=== PATIENT | female | born 1950 | race Caucasian/White ===

== ENCOUNTER 2025-04-17 09:53 | Outpatient (AMB) | payer MEDICARE, SELFPAY ==
--- NOTE | 2025-04-17 10:14 | A.OFFVIS_ITS ---
Intake Visit Reasons: ENP-Cognitive Impairment Allergies pseudoephedrine Allergy (Unknown, Verified 04/16/25 09:27) Unknown Quinolones Allergy (Unknown, Verified 04/16/25 09:27) Unknown Sulfa (Sulfonamide Antibiotics) Allergy (Unknown, Verified 04/16/25 09:27) Unknown Medication List - Last Reconciled 04/17/25 by Eduardo Jerez MD atenolol 25 mg PO DAILY cyanocobalamin (vitamin B-12) 1,000 mcg PO DAILY cbdwdbqtobq-kgqwydilr-plfnmqts 200-62.5-25 mcg (Trelegy Ellipta) 1 ea inhalation DAILY hydroxyzine pamoate 25 mg PO DAILY PRN lamotrigine 150 mg PO BID levothyroxine 50 mcg PO DAILY simvastatin 40 mg PO BEDTIME trazodone 50 mg PO BEDTIME PRN venlafaxine ER 225 mg PO BEDTIME HPI Comments Details: This is a 75-year-old right-handed woman with a history of hypertension, hypoth yroidism, depression, GERD, and high blood pressure who comes in with a 1-2 year history of short-term memory problems. 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 A CAT scan was done about 6 months earlier and was apparently normal. Official reading is not available at this time. List of her medications is on the chart. She reports that her mother had dementia and was treated with Aricept. [facility] Medical History (Updated 04/17/25 @ 10:33 by Eduardo Jerez MD) Anemia Vitamin B12 deficiency Vitamin D deficiency GERD (gastroesophageal reflux disease) COPD (chronic obstructive pulmonary disease) Cognitive impairment Hypothyroidism HLD (hyperlipidemia) Hypertension Surgical History (Updated 04/16/25 @ 09:29 by Slim Matute CMA) H/O lumpectomy Hx of appendectomy Review of Systems Neuro Reports memory loss Psych Reports depression and Reports memory loss Physical Exam Neuro Other: ?Mini Mental Status Exam Level of Consciousness:?Alert.? Orientation:?Knows correct year, month, date, day and season.?Knows correct city, county and state. Knows correct location and floor.? Registration:?Able to register 3 objects.? Attention:?Serial 7's performed accuratelyto 93 Recall:?Able to recall 2 out of 3 objects.? Language:?Normal spontaneous speech, fluency, repetition, naming, comprehension, reading, and writing.? Total Score:?28/30.? Neurological Abnormal neurological findings:??MMS 28/30.? Mental Status:?Alert and oriented X 3.?Normal attention, orientation, and affect.? Cranial Nerves:?Pupils are equal, round and reactive to light. Fundoscopy shows normal disc bilaterally. External occular muscles are intact. Visual phan are full, no ptosis. Face is symmetrical, no facial weakness or droop. Facial sensations are normal. Tongue protrudes in midline. Palate elevates symmetrically. Shoulder shrugging is normal.? Motor Examination:?Normal muscle tone, bulk and strength.?No atrophy or fasciculations.?No drift of the extended upper extremities.?Deep tendon reflexes are 2+.?Plantars are flexor.? Motor Strength:? Proximal Muscles (out of 5):?5 Distal Muscles (out of 5):?5 Neck Flexors (out of 5):?5 Neck Extensors (out of 5):?5 Deltoid (out of 5):?5 Biceps (out of 5):?5 Triceps (out of 5):?5 Serratus Anterior (out of 5):?5 Wrist Extensors (out of 5):?5 APB (out of 5):?5 Finger Spread (out of 5):?5 Ileopsoas (out of 5):?5 Quadriceps (out of 5):?5 Hamstrings (out of 5):?5 Tibialis Anterior (out of 5):?5 Peronei (out of 5):?5 EDB (out of 5):?5 Gastrocnemius (out of 5):?5 Straight Leg Raising:?90 degrees.? Sensory Exam:?Normal light touch, temperature, pinprick, vibration and joint-position sensations.?Rhomberg sign is absent.? Coordination:?No ataxia,?no titubation,?ndgiia-ln-ovqi, wuif-aldg-qito test, and rapid alternating movements were normal.? Gait Exam:?Within normal limits.? Cerebellar Signs:?Ndzxch-bt-mnrw and jnhz-lm-sdjq is normal.?No dysdiadochokinesia.? Extrapyramidal System:?No tremor or?rigidity, normal facial expressions.?No bradykinesia. No bradyphrenia. Normal arm swing and posture. No propulsion or retropulsion.? Speech:?Normal,?no dysphasia or dysarthria.? General Examination GENERAL APPEARANCE:??normal,?in no acute distress?,?normal,?in no acute distress.? HEAD:??normocephalic,?atraumatic.? EYES:??sclera non-icteric,?conjunctiva clear.? EARS:??auditory canal clear,?tympanic membrane intact, clear.? NOSE:??no lesions.? ORAL CAVITY:??gums normal,?mucosa moist,?no lesions.? THROAT:??clear.? NECK/THYROID:??no cervical lymphadenopathy,?thyroid normal,?neck supple, full range of motion,?no carotid bruit.? SKIN:??no rashes,?no significant birthmarks.? HEART:??S1, S2 normal,?no murmurs?,?S1, S2 normal,?no murmurs.? LUNGS:??clear anteriorly and posteriorly?,?clear anteriorly and posteriorly.? CHEST:??no gross rib deformity,?clear to auscultation.? BACK:??normal exam of spine.? MUSCULOSKELETAL:??normal.? EXTREMITIES:??no edema?,?no edema.? PERIPHERAL PULSES:??normal.? PSYCH:??alert, oriented,?cognitive function intact,?cooperative with exam?,?alert, oriented,?cognitive function intact,?cooperative with exam.? Assessment & Plan Assessment & Plan (1) MCI (mild cognitive impairment): Code(s): G31.84 - Mild cognitive impairment of uncertain or unknown etiology Category: Medical Plan Will arrange a more detailed mental state examination with [facility] and [place]. Routine EEG. Labs for treatable causes of cognitive impairment. All start donepezil 5 mg a day to be titrated to 10 mg a day for symptomatic improvement. Coding Level of Care Code New Pt Level 5 (56809) Diagnoses MCI (mild cognitive impairment) G31.84
--- OUTSIDE RECORDS SUMMARY | 2025-04-17 10:47 | XMS_ITS ---
Author Name [facility] Organization Unknown Care Team Organization Name Specialty Phone Email Start Date End Da te [facility] ACO 03/07/2025 [facility] Isaura Zavala MD Primary Care 09/23/2022 03/06/2024 [facility] Ramya Evans Primary Care 05/26/2022 03/06/20 24
--- OUTSIDE RECORDS SUMMARY | 2025-04-17 10:48 | XMS_ITS | Clinical Summary ---
Author Organization [facility] Address [address] [place] [address] Care Team Providers Care Eating Disorder Specialist Name Role Phone Isaura Zavala MD Primary Care Provider Allergies Active Allergy Reactions Criticality Noted Date Comments Quinolones Nausea And Vomiting Medium 02/28/2018 Pseudoephedrine Palpitations Medium 02/28/2018 Sulfa Antibiotics Nausea And Vomiting Medium 8 Medications Medication Sig Dispensed Refills Start Date End Date Status atenolol (TENORMIN) tablet 25 mg Take 1 tablet (25 mg total) by mouth daily. 0 Active lamoTRIgine (LAMICTAL) 100 MG tablet Take 1 tablet (100 mg total) by mouth daily. 0 Active levothyroxine (SYNTHROID, LEVOXYL) tablet 50 mcg Take 1 tablet (50 mcg total) by mouth every morning on an empty stomach. 0 Active Venlafaxine HCl ER 225 MG TB24 Take by mouth. 0 Active simvastatin (ZOCOR) tablet 40 mg Take 1 tablet (40 mg total) by mouth every night at bedtime. 0 Active traZODone (DESYREL) 50 MG tablet Take 1 tablet (50 mg total) by mouth every night at bedtime. 0 Active hydrOXYzine (ATARAX/VISTARIL) 25 MG capsule Take by mouth. 0 Active Multiple Vitamins-Minerals (PRESERVISION AREDS 2 PO) Take by mouth. 0 Active vitamin D3 (cholecalciferol) 10 MCG (400 UNIT) tablet Take 1 tablet (10 mcg total) by mouth daily. 0 Active Esomeprazole Magnesium (NEXIUM PO) Take by mouth. 0 Active Loratadine 10 MG CAPS Take by mouth. 0 Active albuterol 108 (90 Base) MCG/ACT inhaler Inhale 2 puffs into the lungs every 6 (six) hours as needed for wheezing. 0 Active Fluticasone Furoate-Vilanterol 200-25 MCG/ACT AEPB 1 inhalation by Inhaled route daily. 0 Active fluticasone (FLONASE) 50 MCG/ACT nasal spray spray/apply 1 spray in each nostril daily. 0 Active prednisoLONE acetate (PRED MILD) 0.12 % ophthalmic suspension Place 1 drop into both eyes 4 (four) times a day. 0 Active fluticasone-salmeter ol (Wixela Inhub) 250-50 MCG/ACT AEPB INHALE 1 PUFF INTO THE LUNGS 2 TIMES DAILY FOR 30 DAYS. 0 06/04/2023 Active Cyanocobalamin (Vitamin B-12) [address] 1 TABLET UNDER THE TONGUE DAILY. 0 05/07/2023 Active Active Problems Problem Noted Date Diagnosed Date Absolute anemia 06/23/2023 Family History Medical History Relation Name Comments Cancer Brother Diabetes Brother Diabetes Mother Diabetes Sister Relation Name Status Comments Brother Mother Sister Social History Tobacco Use Types Packs/Day Years Used Date Smoking Tobacco: Former Smokeless Tobacco: Never Alcohol Use Standard Drinks/Week Comments No 0 (1 standard drink = 0.6 oz pur e alcohol) Sex and Gender Information Value Date Recorded Sex Assigned at Female 07/01/2023 8:28 AM EST Gender Identity Not on file Sexual Orientation Not on file Job Start Date Occupation Industry Not on file Not on file Not on file Last Filed Vital Signs Vital Sign Reading Time Taken Comments Blood Pressure 148/63 10/12/2023 9:55 AM EDT Pulse 81 10/12/2023 9:55 AM EDT Temperature 36.1 C (97 F) 10/12/2023 9:55 AM EDT Respiratory Rate 18 07/22/2023 1:15 PM EST Oxygen Saturation 97% 10/12/2023 9:55 AM EDT Inhaled Oxygen Concentration - - Weight 75.3 kg (166 lb) 10/12/2023 9:55 AM EDT Height 157.5 cm (5' 2 ) 02/28/2018 2:13 PM EDT Body Mass Index 30.36 02/28/2018 2:13 PM EDT Plan of Treatment Health Maintenance Due Date Last Done Comments Hepatitis C Screening 1950 COVID-19 Vaccine (#1) 1948 Depression Screening 1960 BMI Counseling 1966 Preventative Health Evaluation 1966 DTap / Tdap / Td (1 - Tdap) 1967 Shingrix-Zoster Vaccine (1 of 2) 1998 Fall Risk Assessment 2013 Osteoporosis Screening (DEXA Scan) 2013 RSV Adult > 60+ Yrs or (1 - 1-dose 75+ series) 2023 Influenza Vaccine (#1) 2025 3, 05/03/2021, 04/17/2020, Additional history exists Pneumococcal Vaccine Completed 12/16/2017, 03/12/2016, 05/03/2014 Hepatitis B Vaccines Aged Out No long er eligible based on patient's age to complete this topic RSV Ped < 20 months Aged Out No longe r eligible based on patient's age to complete this topic Care Teams Eating Disorder Specialist Relationship Specialty Start Date End Date Isaura Zavala MD [address] [place] [address] PCP - General Family Medicine 06/18/22
--- OUTSIDE RECORDS SUMMARY | 2025-04-17 10:48 | XMS_ITS | Clinical Summary ---
Author Organization Patient Business Ser [facility] [place] Address [address] [place] [address] Care Team Providers Care Lead Mason Tender Name Role Phone Isaura Shukla MD Primary Care Provider Allergies Active Allergy Reactions Criticality Noted Date Comments Pseudoephedrine Hcl Palpitations Medium 02/28/2018 Quinolones Nausea And Vomiting Medium 02/28/2018 Sulfa (Sulfonamide Antibiotics) Nausea And Vomiting Medium 02/28/2018 Medications albuterol HFA (PROAIR HFA ; PROVENTIL HFA ; VENTOLIN HFA) 90 mcg/actuation inhaler Inhale 2 puffs into the lungs every 6 (six) hours as needed for wheezing. Active esomeprazole magnesium (NEXIUM ORAL) Take by mouth. Active fluticasone propionate (FLONASE) 50 mcg/actuation nasal spray spray/apply 1 spray in each nostril daily. Active hydrOXYzine HCL (ATARAX) 25 mg tablet Take by mouth. Active lamoTRIgine (LaMICtal) 100 mg tablet Take 1 tablet (100 mg total) by mouth daily. Active loratadine 10 mg capsule Take by mouth. Active vit C/E/Zn/coppr/l utein/zeaxan (PRESERVISION AREDS-2 ORAL) Take by mouth. Active traZODone (DESYREL) 50 mg tablet Take 1 tablet (50 mg total) by mouth every night at bedtime. Active venlafaxine 225 mg 24 hr tablet Take by mouth. Active cholecalcifero l (VITAMIN D-3) 10 mcg (400 unit) tablet Take 1 tablet (10 mcg total) by mouth daily. Active Trelegy Ellipta 200-62.5-25 mcg inhaler INHALE 1 PUFF INTO THE LUNGS DAILY FOR 30 DAYS. 60 each 11 5 Active cyanocobalamin (VITAMIN B-12) 1,000 mcg tabletIndicati ons:Vitamin B12 deficiency anemia due to intrinsic factor deficiency PLACE 1 TABLET UNDER THE TONGUE DAILY. 90 tablet 1 5 Active levothyroxine (SYNTHROID, LEVOTHROID) 50 mcg tablet TAKE 1 TABLET BY MOUTH EVERY DAY 90 tablet 1 5 Active simvastatin (ZOCOR) 40 mg tablet TAKE 1 TABLET BY MOUTH EVERY DAY 90 tablet 1 5 Active atenoloL (TENORMIN) 25 mg tablet TAKE 1 TABLET BY MOUTH EVERY DAY 90 tablet 1 5 Active simvastatin (ZOCOR) 40 mg tablet TAKE 1 TABLET BY MOUTH EVERY DAY 90 tablet 1 5 04/13/20 25 Discontinued atenoloL (TENORMIN) 25 mg tablet TAKE 1 TABLET BY MOUTH EVERY DAY 90 tablet 1 5 04/13/20 25 Discontinued levothyroxine (SYNTHROID, LEVOTHROID) 50 mcg tablet Take 1 tablet (50 mcg total) by mouth 1 (one) time each day. 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 Anemia 11/13/2024 Absolute anemia 06/23/2023 COPD (chronic obstructive pu lmonary disease) ([facility] V24, [facility] V28) 01/29/2022 External hemorrhoids 01/29/2022 GERD (gastroesophageal reflux disease) Vitamin D deficiency 01/29/2022 COVID-19 virus infection 01/27/2022 Overview (11/13/2024): 07/2021 Mild cognitive impairment 01/27/2022 Vitamin B12 deficiency 01/27/2022 Hyperlipidemia 01/02/2019 Seasonal allergies 01/02/2019 Encounters Date Type Department Care Team Description 03/02/2025 10:45 AM EDT Office Visit Orthopedic Surgery - [place] [address] [place] [address] Laila Peña PA [facility] arthritis (Primary Dx) 01/24/2025 1:15 PM EDT Office Visit Adult Medicine [facility] [address] [place] [address] Pardeep Obregon PA Cognitive impairment (Primary Dx); Primary hypertension; Hyperlipidemia, unspecified hyperlipidemia type; Hypothyroidism, unspecified type; Vitamin B12 deficiency; Osteopenia of multiple sites from Last 3 Months Immunizations Immunization Administration Dates Next Due Influenza Quadravalent, 0.5m l (Fluad) 65yo and older 05/03/2021,04/17/2020 Influenza Quadravalent, 0.5m l (Fluzone High-dose) 65yo and older 04/27/2023,04/21/2022 Influenza trivalent, 0.5mL ( Fluzone High-dose) 65yo and older 04/27/2024,04/13/2019,04/11/2017 Influenza trivalent, with pr eservative (Fluzone; Afluria) 6mo and older 04/22/2018 Pneumococcal conjugate 13 va lent (Prevnar 13, PCV13) 2mo and older 03/12/2016 Pneumococcal conjugate 20 va lent (Prevnar 20, PCV 20) 2mo and older 09/06/2024 Pneumococcal polysaccharide 23 valent (Pneumovax 23) 2yo and older 12/16/2017,05/03/2014 Zoster Live 07/19/2009 Surgical History Surgery Date Site/Laterality Comments ELBOW SURGERY PROCEDURE: HISTORICAL ELBOW SURGERY BREAST LUMPECTOMY 02/09/2018 Left PROCEDURE: HISTORICAL BREAST LUMPECTOMY; COMMENT: low grade DCIS HYSTERECTOMY 1971 PROCEDURE: HISTORICAL TOTAL HYSTERECTOMY WITH BSO; COMMENT: for endometriosis BREAST BIOPSY 01/24/2018 Left PROCEDURE: BX BREAST; PERC NEEDLE CORE W/IMAG GUID; COMMENT: DCIS BREAST LUMPECTOMY PROCEDURE:BREAST LUMPECTOMY HYSTERECTOMY PROCEDURE:HYSTERECTOMY APPENDECTOMY PROCEDURE:APPENDECTOMY TONSILLECTOMY PROCEDURE:TONSILLECTOMY COLONOSCOPY PROCEDURE:COLONOSCOPY ELBOW SURGERY PROCEDURE:ELBOW SURGERY Medical History Medical History Date Comments Asthma DX:Asthma Anemia DX:Anemia Hypothyroidism DX:Hypothyroidis m Major depression DX:Major depres eric; COMMENT: sees Psychiatrist regularly Hypertension DX:Hypertension Hyperlipidemia 01/02/2019 DX:Hyperlipidemi a Seasonal allergies 01/02/2019 DX:Seasonal a llergies History of breast cancer 11/01/2018 DX:Hist ory of breast cancer; COMMENT: 01/2018 S/p LEFT lumpectomy; 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; ER & RI + receptors; no Tamoxifen recommended and declined radiation COPD (chronic obstructive pu lmonary disease) ([facility] V24, [facility] V28) 01/29/2022 DX:COPD (chronic o bstructive pulmonary disease) ([facility]) GERD (gastroesophageal reflux disease) 01/29/2022 DX:GERD (gastroesophageal reflux disease) Vitamin D deficiency 01/29/2022 DX:Vitamin D deficiency Urinary incontinence 01/29/2022 DX:Urinary incontinence External hemorrhoids 01/29/2022 DX:External hemorrhoids COVID-19 virus infection 01/27/2022 DX:COVI D-19 virus infection; COMMENT: 07/2021 History of endometriosis 01/29/2022 DX:Hist ory of endometriosis; COMMENT: S/p hysterectomy Vitamin B12 deficiency 01/27/2022 DX:Vitami n B12 deficiency Breast cancer ([facility] V24, [facility] V28) DX:Breast cancer ([facility]) Hypertension DX:Hypertension Anemia DX:Anemia GERD (gastroesophageal reflux disease) DX:GERD (gastroesophageal reflux disease) Disease of thyroid gland DX:Dise ase of thyroid gland Family History Medical History Relation Name Comments Breast cancer Aunt maternal 60's Bladder Cancer Brother 1 Cancer Brother 2 Diabetes Brother 2 Diabetes Mother Melanoma Sister 1 Diabetes Sister 2 Relation Name Status Comments Aunt maternal Alive Brother 1 Brother 2 Mother Sister 1 Sister 2 Social History Tobacco Use Types Packs/Day Years Used Date Smoking Tobacco: Former Cigarettes Q uit: 07/19/1999 Smokeless Tobacco: Never Alcohol Use Standard Drinks/Week Comments No 0 (1 standard drink = 0.6 oz pur e alcohol) Housing Instability Answer Date Recorde d Are you worried that in the next 2 months you may not have stable housing? No 08/23/2024 Food Access & Nutrition Answer Date Rec orded Do you have access to a vari ety of food including fruits and vegetables? Yes 08/23/2024 Access to Healthcare Answer Date Record ed Within the last 3 months, ho w many times did you visit the emergency department for your medical care? 4 08/23/2024 Health Literacy Answer Date Recorded How often do you need to hav e someone help you when you read instructions, pamphlets, or other written material from your doctor or pharmacy? Never 08/23/2024 Caregiver: How often do you need to have someone help you when you read instructions, pamphlets, or other written material from your doctor or pharmacy? Not on file 08/23/2024 Financial Risk Answer Date Recorded How hard is it for you to pa y for the very basics like food, housing, medical care, and air conditioning / heating? Somewhat hard 08/23/2024 Transportation Answer Date Recorded Has the lack of transportati on kept you from meetings, work, or from getting things needed for daily living? Yes Has the lack of transportati on kept you from medical appointments or from getting medications? No 08/23/2024 Social Isolation Answer Date Recorded How often do you feel lonely or isolated from those around you? Sometimes 08/23/2024 Food Risk Answer Date Recorded Within the past 12 months we worried whether our food would run out before we got money to buy more. Never true 08/23/2024 Within the past 12 months th e food we bought just didn't last and we didn't have money to get more. Never true 08/23/2024 Dependent Care Answer Date Recorded Do you need help finding or paying for care for your loved ones. For example, rn child or elderly care for an older adult? No 08/23/2024 Education Answer Date Recorded Do you think completing more education or training, like finishing a GED, going to college, or learning a trade, would be helpful for you? No 08/23/2024 Employment and Income Answer Date Recor ded During the last four weeks, have you been actively looking for work? No 08/23/2024 Living Situation Answer Date Recorded What is your living situation? Unrecognized valu e 08/23/2024 Comments Unknown Sex and Gender Information Value Date Recorded Sex Assigned at Female 04/20/2022 11:26 PM EDT Legal Sex Female 10:58 PM EDT Gender Identity Female 04/20/2022 11:26 PM EDT Sexual Orientation Straight 04/20/2022 11 :26 PM EDT Obstetrics History Last Filed Vital Signs Vital Sign Reading Time Taken Comments Blood Pressure 101/56 01/24/2025 1:07 PM EDT Pulse 75 01/24/2025 1:07 PM EDT Temperature 36.2 C (97.1 F) 01/24/2025 1:07 PM EDT Respiratory Rate - - Oxygen Saturation 98% 11/10/2024 9:23 AM EDT Inhaled Oxygen Concentration - - Weight 76.7 kg (169 lb) 01/24/2025 1:07 PM EDT Height 157.5 cm (5' 2 ) 01/24/2025 1:07 PM EDT Body Mass Index 30.91 01/24/2025 1:07 PM EDT Plan of Treatment Upcoming Encounters Date Type Department Care Team (Late st Contact Info) Description 05/28/2025 9:45 AM EST Office Visit Adult Medicine - [address] [address] Isaura Shukla MD [address] [place] [address] Health Maintenance Due Date Last Done Comments DTaP,Tdap,and Td Vaccines (1 - Tdap) 1969 Zoster Vaccines (1 of 2) 09/13/2009 07/19/2009 RSV Immunization Adult Patients (1 - 1-dose 75+ series) 2023 COVID-19 Vaccine (4 - season) 2025 05/25/2021, 10/16/2020, 09/18/2020 Influenza Vaccine (#1) 2025 , 04/27/2023, 04/21/2022, Additional history exists Social Influencers of Health Screening 08/23/2025 08/23/2024 Hypertension/CHF/CAD Annual BMP Blood Test 09/06/2025 09/06/2024 Medicare Annual Wellness Visit 09/06/2025 09/06/2024 Falls Risk Assessment 01/24/2026 01/24/2025, 025 Cholesterol Screening (Lipid Panel) 09/06/2029 09/06/2024 Osteoporosis Screening (Bone Density Screening) 11/03/2034 11/03/2024 Breast Cancer Screening Discontinued 11/01/19 24, 06/27/2022, 06/22/2021, Additional history exists Hepatitis C Screening Completed 09/06/2024 Pneumococcal Vaccine: 50+ Years Completed 09/06/2024, 12/16/2017, 03/12/2016, Additional history exists Depression Screening Completed 01/18/2025 HIB Vaccines Aged Out No longer eligi ble based on patient's age to complete this topic HPV Vaccines Aged Out No longer eligi ble based on patient's age to complete this topic Hepatitis A Vaccines Aged Out No long er eligible based on patient's age to complete this topic Hepatitis B Vaccines Aged Out No long er eligible based on patient's age to complete this topic IPV Vaccines Aged Out No longer eligi ble based on patient's age to complete this topic MMR Vaccines Aged Out No longer eligi ble based on patient's age to complete this topic Meningococcal ACWY Vaccine Aged Out N o longer eligible based on patient's age to complete this topic Meningococcal B Vaccine Aged Out No l onger eligible based on patient's age to complete this topic RSV Immunization Patients Under 20 months Aged Out No longer eligible based on patient's age to complete this topic Varicella Vaccines Aged Out No longer eligible based on patient's age to complete this topic Procedures Procedure Name Priority Date/Time Associated Diagnosis Comments RI ARTHROCENTESIS/ASPIRAT ION/INJECTION SMALL JOINT/BURSA WO U/S GUIDANCE Routine 03/02/2025 10:45 AM EDT [facility]MC arthritis BD BONE DENSITY DXA AXIAL SKELETON Routine 11/03/2024 9:51 AM EDT Postmenopausal HEPATITIS C ANTIBODY Routine 09/06/2024 12:05 PM EST Medicare annual wellness visit, subsequent COMPREHENSIVE METABOLIC PANEL Routine 09/06/2024 12:05 PM EST Medicare annual wellness visit, subsequent Hypothyroidism, unspecified type Primary hypertension Hypercholesterolemi a LIPID PANEL WITH REFLEX TO DIRECT LDL Routine 09/06/2024 12:05 PM EST Medicare annual wellness visit, subsequent Hypothyroidism, unspecified type Primary hypertension Hypercholesterolemi a ALBINA SCREENING DIGITAL Routine 11/01/2023 9:56 AM EDT Encounter for screening mammogram for malignant neoplasm of breast from Last 3 Months or Most Recently Relevant to Health Maintenance Results * RI ARTHROCENTESIS/ASPIRATION/INJECTION SMALL JOINT/BURSA WO U/S GUIDANCE (03/02/2025 10:45 AM EDT) Narrative Laila Peña PA - 03/02/2025 10:45 AM EDT JENNIFER Arredondo 03/02/2025 11:49 AM Hand / UE Inj/Asp: R thumb [facility]MC for osteoarthritis Indications: pain Details: 25 G needle, dorsal approach Medications: 40 mg triamcinolone acetonide 40 mg/mL; 0.5 mL lidocaine 1 % Informed Consent: Laterality: Right Relevant images/test results available and reviewed: yes Health status cleared: Yes Procedure/treatment, purpose, treatment alternatives, risks/potential complications and benefits explained: yes Risk/complications/benefits details: Risks of infection, thinning of the skin, skin discoloration discussed. Discussed the possibility of increased pain, mild redness and swelling at injection site. Discussed uncommon side effect of facial flushing after cortisone injection. Patient may use ice, Tylenol or ibuprofen if they can take it. Benefits pain management Patient questions answered: yes Patient agrees, verbalizes understanding, and wants to proceed: yes Consent given by: Patient Informed consent discussion completed by Physician/KENNETH with patient: Verbal Pre-procedure timeout performed: yes us Laila RODRIGUEZ IN CLINIC/BEDSIDE ORDERABLES Final Result * BD Bone Density DXA Axial Skeleton (11/03/2024 9:51 AM EDT) Anatomical Region Laterality Modality Wrist, Hip, L-spine Bone Densito metry 11/03/2024 9:59 AM EDT Addenda Addendum by Charles Yu MD on 11/03/2024 10:[address] Teleradiology -------- ADDENDUM -------- Dictated By: Charles Yu Dictated Date: 11/03/2024 10:20 ET Assigned Physician: Charles Yu Reviewed and Electronically Signed By: Charles Yu Signed Date: 11/03/2024 10:20 ET Workstation ID: [id number] Transcribed By: Self Edit Transcribed Date: 11/03/2024 10:20 ET Impressions 11/03/2024 10:00 AM EDT 1. Osteopenia. 2. FRAX analysis yields a 10-year probability of major osteoporotic fracture of 13.8% and a 10-year probability of hip fracture of 3.7%. Code 90999 -------- FINAL REPORT -------- Dictated By: Charles Yu Dictated Date: 11/03/2024 09:59 ET Assigned Physician: Charles Yu Reviewed and Electronically Signed By: Charles Yu Signed Date: 11/03/2024 10:00 ET Workstation ID: [id number] Transcribed By: Self Edit Transcribed Date: 11/03/2024 09:59 ET Narrative 11/03/2024 10:00 AM EDT HISTORY: The patient is a 74-year-old postmenopausal female with clinical concern for metabolic bone disease. FINDINGS: Dual energy x-ray absorptiometry of the lumbar spine and femurs is performed. The mean bone mineral density at L1-2 is 1.277 gm/cm2 which is 110% of that of young normals and 129% of that of age matched controls. This yields a T-score of 0.9 and a Z-score of 2.4 and there is therefore no evidence of osteoporosis or osteopenia here. The mean bone mineral density of the femurs bilaterally is 0.961 gm/cm2 which is 95% of that of young normals and 119% of that of age matched controls. This yields a T-score of -0.4 and a Z-score of 1.2 and there is therefore no evidence of osteoporosis or osteopenia here. However, the T-score of the right femoral neck is -2.0 and that of the left femoral neck is -1.8 which is diagnostic of osteopenia. Procedure Note Charles Yu MD - 11/03/2024 HISTORY: The patient is a 74-year-old postmenopausal female with clinicalconcern for metabolic bone disease. FINDINGS: Dual energy x-ray absorptiometry of the lumbar spine and femursis performed. The mean bone mineral density at L1-2 is 1.277 gm/cm2 whichis 110% of that of young normals and 129% of that of age matched controls.This yields a T-score of 0.9 and a Z-score of 2.4 and there is thereforeno evidence of osteoporosis or osteopenia here. The mean bone mineral density of the femurs bilaterally is 0.961 gm/mv4octbk is 95% of that of young normals and 119% of that of age matchedcontrols. This yields a T-score of -0.4 and a Z-score of 1.2 and there istherefore no evidence of osteoporosis or osteopenia here. However, theT-score of the right femoral neck is -2.0 and that of the left femoralneck is -1.8 which is diagnostic of osteopenia. IMPRESSION: 1. Osteopenia. 2. FRAX analysis yields a 10-year probability of major osteoporoticfracture of 13.8% and a 10-year probability of hip fracture of 3.7%. Code 04688 -------- FINAL REPORT -------- Dictated By: Charles Yu Dictated Date: 11/03/2024 09:59 ET Assigned Physician: Charles Yu Reviewed and Electronically Signed By: Charles Yu Signed Date: 11/03/2024 10:00 ET Workstation ID: [id number] Transcribed By: Self Edit Transcribed Date: 11/03/2024 09:59 ET Pardeep RODRIGUEZ Oneyda DXA PROCEDURES Edited Res ult - Final * Hepatitis C antibody (09/06/2024 12:05 PM EST) Hepatitis C Antibody Negative Negative LAB CHEMISTRY METHOD 09/06/2024 4:17 PM EST [facility] Blood Venous blood specimen / Unknown Venipuncture / Unknown 09/06/2024 12:05 PM EST 09/06/2024 12:05 PM EST Pardeep RODRIGUEZ LAB BLOOD ORDERABLES Final Re sult [facility] [address] [place] [address], [place] [phone] * (ABNORMAL) Lipid panel with reflex to direct LDL (09/06/2024 12:05 PM EST) Cholesterol 189 0 - 200 mg/dL LAB CHEMISTRY METHOD 09/06/2024 3:31 PM EST [facility] Triglycerides 226(H) 0 - 150 mg/dL LAB CHEMISTRY METHOD 09/06/2024 3:31 PM [facility] HDL 75 >=40 mg/dL LAB CHEMISTRY METHOD 09/06/2024 3:31 PM EST [facility] LDL Calculated 69 0 - 100 mg/dL LAB CHEMISTRY METHOD 09/06/2024 3:31 PM EST [facility] VLDL Cholesterol Ned 45.2 mg/dL LAB CHEMISTRY METHOD 09/06/2024 3:31 PM EST [facility] Non HDL Chol. (LDL+VLDL) 114 <145 mg/dL LAB CHEMISTRY METHOD 09/06/2024 3:31 PM [facility] Chol/HDL Ratio 2.5 0.0 - 4.4 LAB CHEMISTRY METHOD 09/06/2024 3:31 PM [facility] Blood Venous blood specimen / Unknown Venipuncture / Unknown 09/06/2024 12:05 PM EST 09/06/2024 12:05 PM EST Pardeep RODRIGUEZ LAB BLOOD ORDERABLES Final Re sult [facility] [address] [place] [address], [place] [phone] * (ABNORMAL) Comprehensive metabolic panel (09/06/2024 12:05 PM EST) [facility] Signature Sodium 139 133 - 145 mmol/L LAB CHEMISTRY METHOD 09/06/2024 3:31 PM [facility] Potassium 3.9 3.5 - 5.5 mmol/L LAB CHEMISTRY METHOD 09/06/2024 3:31 PM [facility] Chloride 105 96 - 110 mmol/L LAB CHEMISTRY METHOD 09/06/2024 3:31 PM [facility] CO2 26 21 - 32 mmol/L LAB CHEMISTRY METHOD 09/06/2024 3:31 PM [facility] Anion Gap 8 3 - 11 LAB CHEMISTRY METHOD 09/06/2024 3:31 PM [facility] Glucose 69(L) 70 - 100 mg/dL LAB CHEMISTRY METHOD 09/06/2024 3:31 PM [facility] BUN 20 5 - 25 mg/dL LAB CHEMISTRY METHOD 09/06/2024 3:31 PM [facility] Creatinine 0.82 0.50 - 1.10 mg/dL LAB CHEMISTRY METHOD 09/06/2024 3:31 PM [facility] eGFR 74 >=60 mL/min/1. 73m2 LAB CHEMISTRY METHOD 09/06/2024 3:31 PM [facility] Comment:Calculation based on the Chronic Kidney Disease Epidemiology Collaboration (CKD-EPI) equation refit without adjustment for race. BUN/Creatinine Ratio 24.4 LAB CHEMISTRY METHOD 09/06/2024 3:31 PM [facility] Calcium 9.7 8.5 - 10.5 mg/dL LAB CHEMISTRY METHOD 09/06/2024 3:31 PM [facility] AST (SGOT) 32 10 - 42 unit/L LAB CHEMISTRY METHOD 09/06/2024 3:31 PM [facility] ALT (SGPT) 49 10 - 60 unit/L LAB CHEMISTRY METHOD 09/06/2024 3:31 PM EST [facility] Alkaline Phosphatase 66 42 - 121 unit/L LAB CHEMISTRY METHOD 09/06/2024 3:31 PM EST [facility] Total Protein 6.8 6.0 - 8.0 g/dL LAB CHEMISTRY METHOD 09/06/2024 3:31 PM EST [facility] Albumin 3.8 3.2 - 5.0 g/dL LAB CHEMISTRY METHOD 09/06/2024 3:31 PM EST [facility] Total Bilirubin 0.4 0.0 - 1.4 mg/dL LAB CHEMISTRY METHOD 09/06/2024 3:31 PM EST [facility] Blood Venous blood specimen / Unknown Venipuncture / Unknown 09/06/2024 12:05 PM EST 09/06/2024 12:05 PM EST us Pardeep RODRIGUEZ LAB BLOOD ORDERABLES Final Re sult [facility] [address] [place] [address], * ALBINA SCREENING DIGITAL (11/01/2023 9:56 AM EDT) Anatomical Region Laterality Modality Mammography 10/28/2023 9:28 AM EDT Narrative 11/01/2023 9:56 AM EDT [facility] Diagnostic Imaging Department [address] [place] [address] Patient: LINA HERNÁNDEZ D.O.B./Age/Sex: 1950 - 73 - F Unit#: [id number] Location/Status: SPDIMAM/REG CLI Mnemonic/Ordering Site: [facility] Ordering Physician: ISAURA SHUKLA MD [facility] Screening Digital - 10/30/23 - 1042 Report Status:Signed EXAM: [facility] Screening Digital EXAM DATE AND TIME: 10/30/2023 10:43 AM HISTORY: Annual screening COMPARISON: Multiple exams dating back to 2018 TECHNIQUE: Bilateral digital breast tomosynthesis was performed in the CC and MLO projections. Computer aided detection with Rösler miniDaT 3D 3.1 was employed. TISSUE DENSITY: b. There are scattered areas of fibroglandular density. FINDINGS: Postsurgical changes of left breast lumpectomy. No suspicious masses, grouped microcalcifications, or areas of architectural distortion are seen. The skin and vascularity are unremarkable. IMPRESSION: Stable mammographic appearance of the breasts. No evidence of malignancy is seen. A negative mammogram in the presence of a clinically suspicious palpable abnormality does not preclude the possibility of malignancy or alter the indications for biopsy. BI-RADS: Category 1: Negative RECOMMENDATION(S): 1: Routine screening mammogram BILATERAL in 1 year. 3341F, 7025F Dictating Physician: SANTOS CORBIN MD Electronically Signed by: SANTOS CORBIN MD Dic Date/Time: 11/01/23 0955 Sign date/Time: 11/01/23 0956 Procedure Note Santos Corbin MD - 03/06/2024 [facility] Diagnostic Imaging Department [address] [place] [address] [id number] Patient: LINA HERNÁNDEZ/Age/Sex: 1950 - 73 - F Unit#: [id number] Location/Status: SPDIMAM/REG CLI [facility] Order[facility] Physician: ISAURA SHUKLA MD [facility] Screening Digital - 10/30/23 - 1042 Report Status:Signed EXAM: [facility] Screening Digital EXAM DATE AND TIME: 10/30/2023 10:43 AM HISTORY: Annual screening COMPARISON: Multiple exams dating back to 2018 TECHNIQUE: Bilateral digital breast tomosynthesis was performed in the CCand MLO projections. Computer aided detection with Rösler miniDaT 3D 3.1was employed. TISSUE DENSITY: b. There are scattered areas of fibroglandular density. FINDINGS: Postsurgical changes of left breast lumpectomy. No suspicious masses,grouped microcalcifications, or areas of architectural distortion are seen. Theskin and vascularity are unremarkable. IMPRESSION: Stable mammographic appearance of the breasts. No evidence of malignancyis seen. A negative mammogram in the presence of a clinically suspicious palpable abnormality does not preclude the possibility of malignancy or alter the indications for biopsy. BI-RADS: Category 1: Negative RECOMMENDATION(S): 1: Routine screening mammogram BILATERAL in 1 year. 3341F, 7025F Dictating Physician: SANTOS CORBIN MD Electronically Signed by: SANTOS CORBIN MD Dic Date/Time: 11/01/23 0955 Sign date/Time: 11/01/2356 Isaura Shukla MD IMG BI PROCEDURES Dinorah l Result from Last 3 Months or Most Recently Relevant to Health Maintenance Insurance [employer] Care Teams Lead Mason Tender Relationship Specialty Start Date End Date Isaura Shukla MD [address] [place] [id number] PCP - General Internal Medicine 03/09/22
== END 2025-04-17 10:41 | disposition home or self-care (01) ==
PROVIDERS: Visit Provider Psychiatry & Neurology Neurology
DX: G31.84 Mild cognitive impairment of uncertain or unknown etiology (principal)
CPT/HCPCS: 99204

== ENCOUNTER → 2025-04-17 09:53 | Outpatient (BNVA) | payer MEDICARE, SELFPAY | PROVIDERS: Visit Provider Psychiatry & Neurology Neurology | DX: I10 Essential (primary) hypertension (principal); G31.84 Mild cognitive impairment of uncertain or unknown etiology; E03.9 Hypothyroidism, unspecified; F32.A Depression, unspecified; K21.9 Gastro-esophageal reflux disease without esophagitis | CPT/HCPCS: 99202 ==

== ENCOUNTER 2025-05-25 10:15 | Outpatient (REF) | payer MEDICARE, SELFPAY ==
--- NOTE | 2025-05-25 10:30 | EEG_ITS ---
Reason for Exam: G31.84 Mild cognitive impairment History:H/O Anemia, Vitamin B12 deficiency, GERD (gastroesophageal reflux disease), COPD (chronic obstructive pulmonary disease), Cognitive impairment, Hypothyroidism, HLD (hyperlipidemia), Hypertension- CT of brain normal- c/o memory difficulty and balance issues Medication: atenolol 25 mg PO DAILY, cyanocobalamin (vitamin B-12) 1,000 mcg PO DAILY, trafqlsvgwb-tqwwlfhje-nqnwjblb 200-62.5-25, mcg (Trelegy Ellipta) 1 ea inhalation DAILY, hydroxyzine pamoate 25 mg PO DAILY PRN, lamotrigine 150 mg PO BID, levothyroxine 50 mcg PO DAILY, simvastatin 40 mg PO BEDTIME, trazodone 50 mg PO BEDTIME PRN, venlafaxine ER 225 mg PO BEDTIME Technical description: Photic stimulation: Completed Hyperventilation: Performed Behavioral state: pleasant and cooperative State of Consciousness: awake Skull defect: no Sedation: no Handedness: Right Duration of study: 30 min 52 sec Description: The waking background activity consists of a well-defined moderate voltage 10 hertz posterior alpha frequency that attenuates well with eye opening, while low-voltage fast frequencies predominate anteriorly. Drowsiness is characterized by diffuse theta slowing. Photic stimulation is without activation. Hyperventilation produces no change in the background activity. No focal, lateralizing or paroxysmal discharges are seen. Impression: This waking and drowsy EEG is within normal limits [facility]
--- OUTSIDE RECORDS SUMMARY | 2025-05-25 12:02 | XMS_ITS | Clinical Summary ---
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
--- OUTSIDE RECORDS SUMMARY | 2025-05-25 12:02 | XMS_ITS | Clinical Summary ---
Author Organization Patient Business Ser [facility] [place] Address [address] [place] [address] Care Team Providers Care Solid Waste Facility Supervisor Name Role Phone Isaura Shukla MD Primary [...] mg capsule Take by mouth. Active vit C/E/Zn/coppr/arabella tein/zeaxan (PRESERVISION AREDS-2 ORAL) Take by mouth. Active traZODone (DESYREL) 50 mg tablet Take 1 tablet (50 mg total) by mouth every night at bedtime. Active venlafaxine 225 mg 24 hr tablet Take by mouth. Active cholecalciferol (VITAMIN D-3) 10 mcg (400 unit) tablet Take 1 tablet (10 mcg total) by mouth daily. Active Trelegy Ellipta 200-62.5-25 mcg inhaler INHALE 1 PUFF INTO THE LUNGS DAILY FOR 30 DAYS. 60 each 11 08/24/2024 Active levothyroxine (SYNTHROID, LEVOTHROID) 50 mcg tablet TAKE 1 TABLET BY MOUTH EVERY DAY 90 tablet 1 04/13/2025 Active simvastatin (ZOCOR) 40 mg tablet TAKE 1 TABLET BY MOUTH EVERY DAY 90 tablet 1 04/13/2025 Active atenoloL (TENORMIN) 25 mg tablet TAKE 1 TABLET BY MOUTH EVERY DAY 90 tablet 1 04/13/2025 Active cyanocobalamin (VITAMIN B-12) 1,000 mcg tabletIndicatio ns:Vitamin B12 deficiency anemia due to intrinsic factor deficiency PLACE 1 TABLET UNDER THE TONGUE DAILY. 90 tablet 1 04/23/2025 Active Active Problems Problem Noted Date Diagnosed Date Asthma 11/13/2024 Hypercholesterolemia 11/13/2024 Hypertension 11/13/2024 Hypothyroidism 11/13/2024 Major depression 11/13/2024 Overview (11/13/2024): sees Psychiatrist regularly Cobalamin deficiency 11/13/2024 Anemia 11/13/2024 Absolute anemia 06/23/2023 COPD (chronic obstructive pu lmonary disease) ([facility] V24, [facility] V28) 01/29/2022 External hemorrhoids 01/29/2022 GERD (gastroesophageal reflux disease) Vitamin D deficiency 01/29/2022 COVID-19 virus infection 01/27/2022 Overview (11/13/2024): 07/2021 Mild cognitive impairment 01/27/2022 Vitamin B12 deficiency 01/27/2022 Hyperlipidemia 01/02/2019 Seasonal allergies 01/02/2019 Encounters Date Type Department Care Team Description 03/02/2025 10:45 AM EDT Office Visit Orthopedic Surgery - [address] [id number] Laila Peña PA [facility] arthritis (Primary Dx) from Last 3 Months Immunizations Immunization Administration [...] BREAST LUMPECTOMY; COMMENT: low grade DCIS HYSTERECTOMY 1970 PROCEDURE: HISTORICAL TOTAL HYSTERECTOMY WITH BSO; COMMENT: [...] LEFT lumpectomy; 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; ER & IA + receptors; no Tamoxifen recommended and declined radiation COPD (chronic obstructive pu lmonary disease) ([facility] V24, CMS/HCC V28) 01/29/2022 DX:COPD (chronic o bstructive pulmonary disease) ([facility]) GERD (gastroesophageal reflux disease) 01/29/2022 DX:GERD (gastroesophageal reflux disease) Vitamin D deficiency 01/29/2022 DX:Vitamin D deficiency Urinary incontinence 01/29/2022 DX:Urinary incontinence External hemorrhoids 01/29/2022 DX:External hemorrhoids COVID-19 virus infection 01/27/2022 DX:COVI D-19 virus infection; COMMENT: 07/2021 History of endometriosis 01/29/2022 DX:Hist ory of endometriosis; COMMENT: S/p hysterectomy Vitamin B12 deficiency 01/27/2022 DX:Vitami n B12 deficiency Breast cancer ([facility] V24, [facility] V28) DX:Breast cancer ([facility]) Hypertension DX:Hypertension Anemia DX:Anemia GERD (gastroesophageal reflux [...] care for your loved ones. For example, teacher early childhood development or elderly care for an older adult? [...] AM EST Office Visit Adult Medicine - [place] [address] [place] [address] Isaura Shukla MD [address] [place] [address] Health Maintenance Due Date Last Done Comments [...] 03/12/2016, Additional history exists Depression Screening Completed 05/23/2025 HIB Vaccines Aged Out No longer eligi [...] Procedure Name Priority Date/Time Associated Diagnosis Comments IA ARTHROCENTESIS/ASPIRAT ION/INJECTION SMALL JOINT/BURSA WO U/S GUIDANCE [...] Hypothyroidism, unspecified type Primary hypertension Hypercholesterolemi a JEAN-CLAUDE SCREENING DIGITAL Routine 11/01/2023 9:56 AM EDT Encounter for screening mammogram for malignant neoplasm of breast from Last 3 Months or Most Recently Relevant to Health Maintenance Results * IA ARTHROCENTESIS/ASPIRATION/INJECTION SMALL JOINT/BURSA WO U/S GUIDANCE (03/02/2025 [...] with patient: Verbal Pre-procedure timeout performed: yes Laila RODRIGUEZ IN CLINIC/BEDSIDE ORDERABLES Final Result [...] Signed Date: 11/03/2024 10:20 ET Workstation ID: [id number] Transcribed By: Self Edit Transcribed Date: 11/03/2024 10:20 ET Impressions 11/03/2024 10:00 AM EDT 1. Osteopenia. 2. FRAX analysis yields a 10-year probability of major osteoporotic fracture of 13.8% and a 10-year probability of hip fracture of 3.7%. Code 14180 -------- FINAL REPORT -------- Dictated By: Charles Yu Dictated Date: 11/03/2024 09:59 ET Assigned Physician: Charles Yu Reviewed and Electronically Signed By: Charles Yu Signed Date: 11/03/2024 10:00 ET Workstation ID: [id number] Transcribed By: Self Edit Transcribed Date: 11/03/2024 [...] density of the femurs bilaterally is 0.961 gm/ur7yyjbb is 95% of that of young normals [...] probability of hip fracture of 3.7%. Code 13683 -------- FINAL REPORT -------- Dictated By: Charles Yu Dictated Date: 11/03/2024 09:59 ET Assigned Physician: Charles Yu Reviewed and Electronically Signed By: Charles Yu Signed Date: 11/03/2024 10:00 ET Workstation ID: [id number] Transcribed By: Self Edit Transcribed Date: 11/03/2024 09:59 ET Pardeep RODRIGUEZ IMG DXA PROCEDURES Edited Res ult - Final * Hepatitis C antibody (09/06/2024 12:05 PM EST) [facility] Hepatitis C Antibody Negative Negative LAB CHEMISTRY METHOD 09/06/2024 4:17 PM EST [facility] Blood Venous blood specimen / Unknown Venipuncture / Unknown 09/06/2024 12:05 PM EST 09/06/2024 12:05 PM EST Pardeep RODRIGUEZ LAB BLOOD ORDERABLES Final Re sult [facility] [address] [place] [address], [place] [phone] * (ABNORMAL) Lipid panel with reflex to direct LDL (09/06/2024 12:05 PM EST) [facility] Cholesterol 189 0 - 200 mg/dL LAB CHEMISTRY METHOD 09/06/2024 3:31 PM EST [facility] Triglycerides 226(H) 0 - 150 mg/dL LAB CHEMISTRY METHOD 09/06/2024 3:31 PM [facility] HDL 75 >=40 mg/dL LAB CHEMISTRY METHOD 09/06/2024 3:31 PM [facility] LDL Calculated 69 0 - 100 mg/dL LAB CHEMISTRY METHOD 09/06/2024 3:31 PM [facility] VLDL Cholesterol Ned 45.2 mg/dL LAB CHEMISTRY METHOD 09/06/2024 3:31 PM [facility] Non HDL Chol. (LDL+VLDL) 114 <145 mg/dL LAB CHEMISTRY METHOD 09/06/2024 3:31 PM [facility] Chol/HDL Ratio 2.5 0.0 - 4.4 LAB CHEMISTRY METHOD 09/06/2024 3:31 PM [facility] Blood Venous blood specimen / Unknown Venipuncture / Unknown 09/06/2024 12:05 PM EST 09/06/2024 12:05 PM EST us Pardeep RODRIGUEZ LAB BLOOD ORDERABLES Final Re sult [facility] [address] [place] [address], * (ABNORMAL) Comprehensive metabolic panel (09/06/2024 12:05 PM EST) Sodium 139 133 - 145 mmol/L LAB CHEMISTRY METHOD 09/06/2024 3:31 PM [facility] Potassium 3.9 3.5 - 5.5 mmol/L LAB CHEMISTRY METHOD 09/06/2024 3:31 PM [facility] Chloride 105 96 - 110 mmol/L LAB CHEMISTRY METHOD 09/06/2024 3:31 PM [facility] CO2 26 21 - 32 mmol/L LAB CHEMISTRY METHOD 09/06/2024 3:31 PM [facility] Anion Gap 8 3 - 11 LAB CHEMISTRY METHOD 09/06/2024 3:31 PM [facility] Glucose 69(L) 70 - 100 mg/dL LAB CHEMISTRY METHOD 09/06/2024 3:31 PM [facility] BUN 20 5 - 25 mg/dL LAB CHEMISTRY METHOD 09/06/2024 3:31 PM [facility] Creatinine 0.82 0.50 - 1.10 mg/dL LAB CHEMISTRY METHOD 09/06/2024 3:31 PM [facility] eGFR 74 >=60 mL/min/1. 73m2 LAB CHEMISTRY METHOD 09/06/2024 3:31 PM [facility] Comment:Calculation based on the Chronic Kidney Disease Epidemiology Collaboration (CKD-EPI) equation refit without adjustment for race. BUN/Creatinine Ratio 24.4 LAB CHEMISTRY METHOD 09/06/2024 3:31 PM [facility] Calcium 9.7 8.5 - 10.5 mg/dL LAB CHEMISTRY METHOD 09/06/2024 3:31 PM [facility] AST (SGOT) 32 10 - 42 unit/L LAB CHEMISTRY METHOD 09/06/2024 3:31 PM [facility] ALT (SGPT) 49 10 - 60 unit/L LAB CHEMISTRY METHOD 09/06/2024 3:31 PM [facility] Alkaline Phosphatase 66 42 - 121 unit/L LAB CHEMISTRY METHOD 09/06/2024 3:31 PM [facility] Total Protein 6.8 6.0 - 8.0 g/dL LAB CHEMISTRY METHOD 09/06/2024 3:31 PM [facility] Albumin 3.8 3.2 - 5.0 g/dL LAB CHEMISTRY METHOD 09/06/2024 3:31 PM [facility] Total Bilirubin 0.4 0.0 - 1.4 mg/dL LAB CHEMISTRY METHOD 09/06/2024 3:31 PM [facility] Blood Venous blood specimen / Unknown Venipuncture / Unknown 09/06/2024 12:05 PM EST 09/06/2024 12:05 PM EST us Pardeep RODRIGUEZ LAB BLOOD ORDERABLES Final Re sult [facility] [address] [place] [address], * JEAN-CLAUDE SCREENING DIGITAL (11/01/2023 9:56 AM EDT) Anatomical Region Laterality Modality Mammography 10/28/2023 9:28 AM EDT Narrative 11/01/2023 9:56 AM EDT [facility] Diagnostic Imaging Department [address] [place] [address] Patient: LINA HERNÁNDEZ.O.B./Age/Sex: 1950 - 73 - F Unit#: [id number] Location/Status: [facility] CLI Mnemonic/Ordering Site: [facility] Ordering Physician: ISAURA SHUKLA MD Jean-Claude Screening Digital - 10/30/23 - 1042 Report Status:Signed EXAM: Jean-Claude Screening Digital EXAM DATE AND TIME: 10/30/2023 10:43 AM HISTORY: Annual screening COMPARISON: Multiple exams dating back to 2018 TECHNIQUE: Bilateral digital breast tomosynthesis was performed in the CC and MLO projections. Computer aided detection with Tame 3D 3.1 was employed. TISSUE DENSITY: b. [...] Routine screening mammogram BILATERAL in 1 year. 4001F, 3296F Dictating Physician: SANTOS CORBIN MD Electronically Signed by: SANTOS CORBIN MD Dic Date/Time: 11/01/2355 Sign date/Time: 11/01/2356 Procedure Note Santos Corbin MD - 03/06/2024 [facility] Diagnostic Imaging Department [address] [place] [address] Patient: EDGARLINAO.B./Age/Sex: 1950 - 73 - F Unit#: [id number] Location/Status: [facility] CLI Mnemonic/Ordering Site: [facility] Ordering Physician: ISAURA SHUKLA MD [facility] Screening Digital - 10/30/23 - 1042 Report Status:Signed EXAM: [facility] Screening Digital EXAM DATE AND TIME: 10/30/2023 10:43 AM HISTORY: Annual screening COMPARISON: Multiple exams dating back to 2018 TECHNIQUE: Bilateral digital breast tomosynthesis was performed in the CCand MLO projections. Computer aided detection with [employer] 3D 3.1was employed. TISSUE DENSITY: b. There [...] screening mammogram BILATERAL in 1 year. 3341F, 7094F Dictating Physician: SANTOS CORBIN MD Electronically Signed by: SANTOS CORBIN MD Dic Date/Time: 11/01/2355 Sign date/Time: 11/01/2356 Isaura Shukla MD IMG BI PROCEDURES Dinorah l Result from Last 3 Months or Most Recently Relevant to Health Maintenance Insurance [employer] Care Teams Solid Waste Facility Supervisor Relationship Specialty Start Date End Date Isaura Shukla MD [address] [place] [phone] PCP - General Internal Medicine 03/09/22
== END 2025-05-25 10:16 | disposition home or self-care (01) ==
LOC: HO.NEURO 10:15
PROVIDERS: Visit Provider Psychiatry & Neurology Neurology
DX: G31.84 Mild cognitive impairment of uncertain or unknown etiology (principal); Z79.899 Other long term (current) drug therapy
CPT/HCPCS: 95816

== ENCOUNTER → 2025-05-25 10:30 | Outpatient (BNV) | payer MEDICARE, SELFPAY | PROVIDERS: Visit Provider Psychiatry & Neurology Neurology | DX: G31.84 Mild cognitive impairment of uncertain or unknown etiology (principal) | CPT/HCPCS: 95816 ==

== ENCOUNTER 2025-06-06 10:33 | Outpatient (AMB) | payer MEDICARE, SELFPAY ==
--- NOTE | 2025-06-06 10:34 | MHC.OFFVIS ---
Vital Signs 06/06/25 10:40 Height 5 ft 2 in Weight 165 lb BMI 30.2 BP 102/64 Blood Pressure Location Lt brachial Position Sitting Respiration 16 Pulse 82 Pulse Oximetry (%) 98 Oxygen Delivery Method Room Air Intake Visit Reasons: 2M Accompanied by: Spouse Allergies pseudoephedrine Allergy (Unknown, Verified 04/16/25 09:27) Unknown Quinolones Allergy (Unknown, Verified 04/16/25 09:27) Unknown Sulfa (Sulfonamide Antibiotics) Allergy (Unknown, Verified 04/16/25 09:27) Unknown HPI Comments Details: Lina Francisco is a 75-year-old female patient with a past medical history of hypertension, hypothyroidism, depression, and GERD here today for a Woodward test. She saw Dr. Jerez on 04/17/2025 at which time she reported a 1-2 history of short-term memory problems . A CT scan of the brain was normal. She had reported that her mother had dementia and treated with Aricept in the past. Dr. Jerez ordered a routine EEG and started her on donepezil 5 mg daily which would be titrated to 10 mg for symptomatic improvement. Of note, she did have her EEG performed 05/25/2025 which was normal. [facility] Medical History (Updated 06/06/25 @ 11:12 by Keyana Allison CNP) Anemia Vitamin B12 deficiency Vitamin D deficiency GERD (gastroesophageal reflux disease) COPD (chronic obstructive pulmonary disease) Cognitive impairment Hypothyroidism HLD (hyperlipidemia) Hypertension Surgical History (Updated 04/16/25 @ 09:29 by Slim Matute CMA) H/O lumpectomy Hx of appendectomy Review of Systems Const All systems reviewed & are unremarkable except as noted in HPI and below Physical Exam Const General: cooperative, healthy appearing, comfortable and no acute distress Nutritional Appearance: well nourished Orientation/consciousness: patient oriented x3 Limitations: no limitations HEENT Head: Yes normal to inspection and Yes normocephalic Eyes General: appearance normal, both eyes and all related structures Visual Roberto: normal visual roberto by confrontation Alignment and Position: alignment normal Periorbital: periorbital findings normal Eyelids: Yes eyelids normal Conjunctivae: conjunctivae normal Sclerae: sclerae normal Neuro Other: MOCA: MOCA total: (1 point given for years of schooling) Executive:5/5 Namin/3 Attention:5/6 Language:09/18 Abstraction:08/20 Delayed recall:10/21 Orientation:12/22 General: patient oriented x3 Cranial nerves: Yes CN's II-XII intact bilaterally Cognition (Neuro): normal cognition Gait exam (Neuro): Normal gait present Motor exam (neuro): no tremor noted Sensory Exam: double simultaneous stimulation for sensation normal Romberg Test: Negative Pupils: Normal pupillary reactivity/response: bilateral Psych Appearance: grossly normal Mental Status: mental status grossly normal Speech and movement: Normal speech and movement present and Clear speech present Affect: normal affect Attitude: cooperative Thought process: Normal thought process present Thought content: Normal thought content present Insight: Good insight present (Psych) Judgement: Good judgement present (Psych) Assessment & Plan Assessment & Plan (1) Memory deficit: Code(s): R41.3 - Other amnesia Category: Medical Plan Lina Francisco is a 75-year-old female patient with a past medical history of hypertension, hypothyroidism, depression, and GERD here today for a Woodward test. I did review her EEG today with her which was normal and her Woodward score was actually normal scoring 27 (1 point given for years of schooling). She does tell me that she could not tolerate the donepezil that was prescribed at this visit as it caused significant indigestion. She says her sed in trying memantine as an alternative. I will prescribe memantine 5 mg daily for 1 week and then increase to 5 mg twice daily. We also discussed alternative such as mkoi-bzq-lwejyjm memory support medications though she would prefer to try the memantine. I will have her follow up with Dr. Jerez now that we have the EEG, Woodward testing, and are trialing a new medication. I would be happy to see her in the future for continued monitoring. -Woodward test performed -Discontinue dopepizil due to side effects -Start a trial of memantine 5mg daily for 1 week and then increase to 5mg twice daily Medications: New memantine (Namenda) Start with 1 tablet daily in the morning for 1 week and then can increase to 1 tablet twice daily 5 mg PO BID 60 tabs 5RF 30 days Discontinued donepezil Discontinued Reason: Doctor's Order 5 mg PO DAILY 90 tabs 2RF Coding Level of Care Code Est Pt Level 4 (97916) Diagnoses Memory deficit R41.3
[2025-06-06 10:40] VITALS: BP 102/64; PULSE 82; RESP 16; O2SAT 98; BMI 30.2
--- OUTSIDE RECORDS SUMMARY | 2025-06-06 20:35 | XMS_ITS | Clinical Summary ---
Author Organization Patient Business Ser [facility] [place] Address [address] [place] [address] Care Team Providers Care Associate Professor Of Sociology Name Role Phone Isaura Shukla MD Primary [...] 06/23/2023 COPD (chronic obstructive pu lmonary disease) ([facility] V24, [facility] V28) 01/29/2022 External hemorrhoids 01/29/2022 GERD (gastroesophageal reflux disease) Vitamin D deficiency 01/29/2022 COVID-19 virus infection 01/27/2022 Overview (11/13/2024): 07/2021 Mild cognitive impairment 01/27/2022 Vitamin B12 deficiency 01/27/2022 Hyperlipidemia 01/02/2019 Seasonal allergies 01/02/2019 Immunizations Immunization Administration Dates Next Due Influenza [...] LEFT lumpectomy; 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; ER & MT + receptors; no Tamoxifen recommended and declined radiation COPD (chronic obstructive pu lmonary disease) (CMS/HCC V24, CMS/HCC V28) 01/29/2022 DX:COPD (chronic o bstructive pulmonary disease) (HCC) GERD (gastroesophageal reflux disease) 01/29/2022 DX:GERD (gastroesophageal reflux disease) Vitamin D deficiency 01/29/2022 DX:Vitamin D deficiency Urinary incontinence 01/29/2022 DX:Urinary incontinence External hemorrhoids 01/29/2022 DX:External hemorrhoids COVID-19 virus infection 01/27/2022 DX:COVI D-19 virus infection; COMMENT: 07/2021 History of endometriosis 01/29/2022 DX:Hist ory of endometriosis; COMMENT: S/p hysterectomy Vitamin B12 deficiency 01/27/2022 DX:Vitami n B12 deficiency Breast cancer (CMS/HCC V24, CMS/HCC V28) DX:Breast cancer (HCC) Hypertension DX:Hypertension Anemia DX:Anemia GERD (gastroesophageal reflux [...] Years Used Date Smoking Tobacco: Former Cigarettes 0 Q uit: 07/19/1999 Smokeless Tobacco: Never Alcohol [...] care for your loved ones. For example, child welfare assistant or elderly care for an older adult? [...] Care Team (Late st Contact Info) Description 07/10/2025 8:45 AM EST Office Visit Adult Medicine - [place] [address] [place] [id number] Isaura Shukla MD [address] [place] [address] Health Maintenance Due Date Last Done Comments DTaP,Tdap,and Td Vaccines (1 - Tdap) 1969 Zoster Vaccines (1 of 2) 09/13/2009 07/19/2009 RSV Immunization Adult Patients (1 - 1-dose 75+ series) 2023 COVID-19 Vaccine (4 - 2024- season) 2025 05/25/2021, 10/16/2020, 09/18/2020 Influenza Vaccine (#1) 2025 , 04/27/2023, 04/21/2022, Additional history exists Social Influencers of Health Screening 08/23/2025 08/23/2024 Hypertension/CHF/CAD Annual BMP Blood Test 09/06/2025 09/06/2024 Medicare Annual Wellness Visit 09/06/2025 09/06/2024 Falls Risk Assessment 05/28/2026 05/28/2025 , 01/24/2025, 09/06/2024 Cholesterol Screening (Lipid Panel) 09/06/2029 09/06/2024 Osteoporosis [...] Procedure Name Priority Date/Time Associated Diagnosis Comments BD BONE DENSITY DXA AXIAL SKELETON Routine [...] Recently Relevant to Health Maintenance Results * BD Bone Density DXA Axial Skeleton [...] Signed Date: 11/03/2024 10:20 ET Workstation ID: [id number] Transcribed By: Self Edit Transcribed Date: 11/03/2024 10:20 ET Impressions 11/03/2024 10:00 AM EDT 1. Osteopenia. 2. FRAX analysis yields a 10-year probability of major osteoporotic fracture of 13.8% and a 10-year probability of hip fracture of 3.7%. Code 16511 -------- FINAL REPORT -------- Dictated By: Charles Yu Dictated Date: 11/03/2024 09:59 ET Assigned Physician: Charles Yu Reviewed and Electronically Signed By: Charles Yu Signed Date: 11/03/2024 10:00 ET Workstation ID: [id number] Transcribed By: Self Edit Transcribed Date: 11/03/2024 [...] density of the femurs bilaterally is 0.961 gm/[id number] is 95% of that of young normals [...] probability of hip fracture of 3.7%. Code 32247 -------- FINAL REPORT -------- Dictated By: Charles Yu Dictated Date: 11/03/2024 09:59 ET Assigned Physician: Charles Yu Reviewed and Electronically Signed By: Charles Yu Signed Date: 11/03/2024 10:00 ET Workstation ID: [id number] Transcribed By: Self Edit Transcribed Date: 11/03/2024 09:59 ET Pardeep RODRIGUEZ IMG DXA PROCEDURES Edited Res ult - Final * Hepatitis C antibody (09/06/2024 12:05 PM EST) Hepatitis C Antibody Negative Negative LAB CHEMISTRY METHOD 09/06/2024 4:17 PM EST [facility] Blood Venous blood specimen / Unknown Venipuncture / Unknown 09/06/2024 12:05 PM EST 09/06/2024 12:05 PM EST Pardeep RODRIGUEZ LAB BLOOD ORDERABLES Final Re sult [facility] [address] [place] [address], [place] [phone] * (ABNORMAL) Lipid panel with reflex to direct LDL (09/06/2024 12:05 PM EST) Cholesterol 189 0 - 200 mg/dL LAB CHEMISTRY METHOD 09/06/2024 3:31 PM EST [facility] Triglycerides 226(H) 0 - 150 mg/dL LAB CHEMISTRY METHOD 09/06/2024 3:31 PM EST [facility] HDL 75 >=40 mg/dL LAB CHEMISTRY METHOD 09/06/2024 3:31 PM EST [facility] LDL Calculated 69 0 - 100 mg/dL LAB CHEMISTRY METHOD 09/06/2024 3:31 PM EST [facility] VLDL Cholesterol Ned 45.2 mg/dL LAB CHEMISTRY METHOD 09/06/2024 3:31 PM EST [facility] Non HDL Chol. (LDL+VLDL) 114 <145 mg/dL LAB CHEMISTRY METHOD 09/06/2024 3:31 PM EST [facility] Chol/HDL Ratio 2.5 0.0 - 4.4 LAB CHEMISTRY METHOD 09/06/2024 3:31 PM EST [facility] Blood Venous blood specimen / Unknown Venipuncture / Unknown 09/06/2024 12:05 PM EST 09/06/2024 12:05 PM EST Pardeep RODRIGUEZ LAB BLOOD ORDERABLES Final Re sult [facility] [address] [place] [address], [place] [phone] * (ABNORMAL) Comprehensive metabolic panel (09/06/2024 12:05 PM EST) Pathologist [facility] Sodium 139 133 - 145 mmol/L LAB CHEMISTRY METHOD 09/06/2024 3:31 PM EST [facility] Potassium 3.9 3.5 - [...] [facility] Alkaline Phosphatase 66 42 - 121 unit/L LAB CHEMISTRY METHOD 09/06/2024 3:31 PM [facility] Total Protein 6.8 6.0 - 8.0 g/dL LAB CHEMISTRY METHOD 09/06/2024 3:31 PM [facility] Albumin 3.8 3.2 - 5.0 g/dL LAB CHEMISTRY METHOD 09/06/2024 3:31 PM EST [facility] Total Bilirubin 0.4 0.0 - 1.4 mg/dL LAB CHEMISTRY METHOD 09/06/2024 3:31 PM EST [facility] Blood Venous blood specimen / Unknown Venipuncture / Unknown 09/06/2024 12:05 PM EST 09/06/2024 12:05 PM EST us Pardeep RODRIGUEZ LAB BLOOD ORDERABLES Final Re sult [facility]) [facility] [address] [place] [address], * JEAN-CLAUDE SCREENING DIGITAL (11/01/2023 9:56 AM EDT) Anatomical Region Laterality Modality Mammography 10/28/2023 9:28 AM EDT Narrative 11/01/2023 9:56 AM EDT [facility] Diagnostic Imaging Department [address] [place] [address] Patient: LINA HERNÁNDEZ./Age/Sex: 1950 - 73 - F Unit#: [id number] Location/Status: SPDIMAM/REG CLI Mnemonic[facility] Ordering Physician: ISAURA SHUKLA MD Jean-Claude Screening Digital - 10/30/23 - 1042 Report Status:Signed EXAM: [facility] Screening Digital EXAM DATE AND TIME: 10/30/2023 10:43 AM HISTORY: Annual screening COMPARISON: Multiple exams dating back to 2018 TECHNIQUE: Bilateral digital breast tomosynthesis was performed in the CC and MLO projections. Computer aided detection with ZAO Begun 3D 3.1 was employed. TISSUE DENSITY: b. [...] screening mammogram BILATERAL in 1 year. 3341F, 7010F Dictating Physician: SANTOS CORBIN MD Electronically Signed by: SANTOS CORBIN MD Dic Date/Time: 11/01/23 0955 Sign date/Time: 11/01/23 0956 Procedure Note Santos Corbin MD - 03/06/2024 [facility] Diagnostic Imaging Department [address] [place] [id number] Patient: EDGARLINA Moulton.B./Age/Sex: 1950 - 73 - F Unit#: [id number] Location/Status: [facility]/REG CLI Mnemonic/Ordering Site: [facility] Ordering Physician: ISAURA SHUKLA MD Jean-Claude Screening Digital - 10/30/23 - 1042 Report Status:Signed EXAM: Jean-Claude Screening Digital EXAM DATE AND TIME: 10/30/2023 10:43 AM HISTORY: Annual screening COMPARISON: Multiple exams dating back to 2018 TECHNIQUE: Bilateral digital breast tomosynthesis was performed in the CCand MLO projections. Computer aided detection with ZAO Begun 3D 3.1was employed. TISSUE DENSITY: b. There [...] CORBIN MD Dic Date/Time: 11/01/2355 Sign date/Time: 11/01/23 0956 Isaura Shukla MD IMG BI PROCEDURES Dinorah l Result from Last 3 Months or Most Recently Relevant to Health Maintenance Insurance [employer] Care Teams Associate Professor Of Sociology Relationship Specialty Start Date End Date Isaura Shukla MD [address] [address] PCP - General Internal Medicine 03/09/22
--- OUTSIDE RECORDS SUMMARY | 2025-06-06 20:35 | XMS_ITS | Clinical Summary ---
Author Organization [facility] Address [address] [place] [address] Care Team Providers Care Diabetes Nurse Name Role Phone Isaura Zavala MD Primary [...] age to complete this topic Care Teams Diabetes Nurse Relationship Specialty Start Date End Date Isaura Zavala MD [address] [place] [address] PCP - General Family Medicine 06/18/22
== END 2025-06-06 11:59 | disposition home or self-care (01) ==
LOC: HO.HSM 10:33
PROVIDERS: Visit Provider Nurse Practitioner
DX: R41.3 Other amnesia (principal)
CPT/HCPCS: 99214

== ENCOUNTER → 2025-06-06 10:33 | Outpatient (BNVA) | payer MEDICARE, SELFPAY | PROVIDERS: Visit Provider Nurse Practitioner | DX: R41.3 Other amnesia (principal) | CPT/HCPCS: 99212 ==